=== PATIENT | female | born 1950 | race Caucasian/White ===

== ENCOUNTER → 2018-09-26 13:00 | Outpatient (CLI) | payer MEDICARE ==
[~2018-09-26] VITALS: Ht 152.4 cm; Wt 47.7 kg
[2018-09-26 13:40] VITALS: BP 135/77; Ht 152.4 cm; Wt 47.7 kg
== END | disposition home or self-care (01) ==
LOC: D.OPS 09-13 13:00
PROVIDERS: ATTEND Family Medicine
DX: M81.0 Age-related osteoporosis without current pathological fracture (principal)

== ENCOUNTER 2019-03-20 10:04 | Outpatient (CLI) | payer MEDICARE ==
[~2019-03-20] VITALS: Ht 152.4 cm; Wt 48.6 kg
[2019-03-20 10:16] VITALS: BP 138/57; Ht 152.4 cm; Wt 48.6 kg
--- NOTE | 2019-03-20 10:20 | NUR ---
PT LEFT UNIT VIA WC AT 1020
== END 2019-03-20 10:20 | disposition home or self-care (01) ==
LOC: D.OPS 10:04
PROVIDERS: ATTEND Family Medicine
DX: M81.0 Age-related osteoporosis without current pathological fracture (principal)

== ENCOUNTER 2019-03-22 22:20 | Emergency (ER) | payer MEDICARE, MEDICAID ==
[~2019-03-22] VITALS: Ht 152.4 cm; Wt 75.0 kg
[2019-03-22 22:28] VITALS: Ht 152.4 cm; Wt 75.0 kg
[2019-03-22 22:49] LABS: BASOPHILS 0.4 % (0-2); EOSINOPHILS 4.4 % (0-7); HEMATOCRIT 32.4 % (36.0-48.0); HEMOGLOBIN 11.2 g/dL (12-16); IMMATURE GRANULOCYTES 0.4 % (0-5); MCH 44.6 pg (26.0-34.0); MCHC 34.6 g/dL (31.0-37.0); MCV 129.1 fL (80.0-100.0); MEAN PLATELET VOLUME 9.4 fL (7.4-10.4); MONOCYTES 13.1 % (2-11); NEUTROPHILS 63.7 % (40-80); RBC 2.51 10x6/uL (4.00-5.40); RDW 14.4 % (11.5-14.5); WBC 5.4 10x3/uL (4.8-10.8)
[2019-03-22 22:52] LABS: PLATELET COUNT 328 10x3/uL (130-400)
[2019-03-22 22:56] LABS: APPEARANCE CLEAR (CLEAR); BILIRUBIN NEGATIVE (NEGATIVE); COLOR YELLOW (YELLOW); GLUCOSE NEGATIVE (NEGATIVE); KETONE NEGATIVE (NEGATIVE); NITRITE NEGATIVE (NEGATIVE); PROTEIN NEGATIVE (NEGATIVE); SPECIFIC GRAVITY 1.015 (1.005-1.020); UROBILINOGEN NORMAL (NORMAL)
[2019-03-22 22:59] LABS: ANION GAP 13.9 mmol/L (8-16); CALCIUM 8.6 mg/dL (8.5-10.1); CARBON DIOXIDE 27.7 mmol/L (21.0-32.0); CREATININE - SERUM 1.2 mg/dL (0.6-1.3); POTASSIUM - SERUM 4.6 mmol/L (3.5-5.1)
[2019-03-22 23:05] LABS: ALBUMIN 3.8 g/dL (3.4-5.0); BILIRUBIN - TOTAL 0.84 mg/dL (0.2-1.3); PROTEIN - SERUM 7.9 g/dL (6.4-8.2)
[2019-03-23] MEDS ORDERED: ZOFRAN ODT4 MG/UDTAB PO (00:18)
[2019-03-23] MEDS ORDERED: LOMOTIL 2.5-0.1 EAC1 PO (00:18)
[2019-03-23 01:18] VITALS: BP 119/64
== END 2019-03-23 01:20 | disposition home or self-care (01) ==
LOC: D.ER 22:20
PROVIDERS: Family Medicine
DX: A08.4 Viral intestinal infection, unspecified (principal); R11.2 Nausea with vomiting, unspecified; I10 Essential (primary) hypertension

== ENCOUNTER 2019-09-19 11:58 | Outpatient (CLI) | payer MEDICARE, MEDICAID ==
[~2019-09-19] VITALS: Ht 152.4 cm; Wt 50.0 kg
[~2019-09-19 11:58] MED LIST: LOMOTIL 2.5-0.1 EAC1 PO; ZOFRAN ODT4 MG/UDTAB PO
[2019-09-19 12:42] VITALS: BP 129/66; Ht 152.4 cm; Wt 50.0 kg
== END 2019-09-19 12:35 ==
LOC: D.OPS 11:58
PROVIDERS: ATTEND Family Medicine
DX: M81.0 Age-related osteoporosis without current pathological fracture (principal)